=== PATIENT | female | born 2000 | race Hispanic/Latino ===

== ENCOUNTER 2024-10-20 10:13 | Emergency (ER) | payer OTHER, SELFPAY ==
--- OUTSIDE RECORDS SUMMARY | 2024-10-20 10:18 | XMS REPORT | Continuity of Care Document ---
Author Name Unknown Address [address] [facility] [address] [place] [id number] [facility] thconnect Address [address] [facility] [place] [address] Care Team Providers Care Pre Press Manager Name Role Phone PCP, PATIENT DOES NOT HAVE A Primary Care Physic bertram Unavailable HALI GARCIA Attending Clinician Unavailable HALI GARCIA Attending Clinician Unavailable Fontanilla III, MANAGER IMAGE, R Attending Clinician [phone] Radha Burger MD Attending Clinician + 2, [facility] Attending Clinician Unavailable Doctor Unassigned, [place] Attending Clinician U navailable MANAS TAYLOR Attending Clinician Unav ailleticia Ultrasound, Ang-Mfm Attending Clinician Unavaila jose Domingo MD Lorenz Attending Clinician + Nai Bolaños Attending Clinician [phone] Unknown, Attending Attending Clinician Unavailab NAI Mclean Attending Clinician Unavailable HALI GARCIA Admitting Clinician Unavailable Hali Garcia MD Admitting Clinician [phone] Payers Payer Name Policy Type Policy Number Effective Date Expirati on Date Source [facility] [id number] 2023 00:00:00 Problems Condition Name Condition Details Condition Category Status Onset Date Resolution Date Last Treatment Date Treating Clinician Comments Source Encounter for screening for maternal depression Encounter for screening for maternal depression Disease Active 2- 00:00: 00 Aryan lowery [facility] Liveborn infant, of jimenez , born in hospital by delivery Liveborn infant, of jimenez , born in hospital by delivery Disease Active 1-04 00:00: 00 [facility] 39 weeks gestation of 39 weeks gestation of Disease Active 1-03 00:00: 00 [facility] Positive GBS test Positive GBS test Disease Active 2022-09 2-20 00:00: 00 [facility] Encounter for supervisio n of normal first in third trimester Encounter for supervisio n of normal first in third trimester Disease Active 6- 00:00: 00 [facility] Allergies, Adverse Reactions, Alerts Allergy Name Allergy Type Status Severity Reaction(s) Onset Date Inactive Date Treating Clinician Comments Source NO KNOWN ALLERGIE S Drug Class Active [facility] Social History Social Habit Start Date Stop Date Quantity Comments Source ASSERTION 2022-12-22 00:00:00 [facility] Gender identity [facility] Sexual orientation [facility] Alcohol intake 2023-10-13 00:00:00 2023-10-13 00:00:00 Ex-drinker (finding) [facility] History of Social function 2023-03-22 00:00:00 2023-03-22 00:00:00 [facility] Tobacco use and exposure 2023-03-01 00:00:00 2023-03-01 00:00:00 Smokeless tobacco non-user [facility] Alcohol Comment 2023-03-01 00:00:00 2023-03-01 00:00:00 quit when got [facility] Sex Assigned At 2002 00:00:00 2000 00:00:00 [facility] Smoking Status Start Date Stop Date Source Tobacco smoking consumption unknown [facility] Never smoked tobacco [facility] Medications Ordered Medication Name Filled Medication Name Start Date Stop Date Current Medication? Ordering Clinician Indication Dosage Frequency Signature (SIG) Comments Components Source HYDROcodone -acetaminop hen (NORCO 5) 5-325 mg tablet 1 tablet 09-11 00:00: 00 Yes 1{tbl} 1 tablet, Oral, Q6HPRN, Starting on Wed09/10/23 at 1800, Until Discontinu ed, Routine, Pain (scale 7-10), Alternate with Ibuprofen [facility] PNV no.95/wilbur us fum/folic ac ( ORAL) 09-10 08:53: 05 09-10 00:00 :00 No Take by mouth. [facility] ketorolac (TORADOL) injection 30 mg 09-10 06:00: 00 09-11 05:59 :00 No 30mg 30 mg, Slow IV Push, Q6H ABX, 4 doses, First dose on Wed09/10/23 at 0000, Last dose on Wed09/10/23 at 1800, Routine [facility] acetaminoph en 325 mg tablet 09-10 00:00: 00 Yes [id number] 650mg Take 2 tablets by mouth every 6 (six) hours as needed for Pain (scale 1-3) or Pain (scale 4-6). [facility] ferrous sulfate 325 mg (65 mg iron) tablet 09-10 00:00: 00 Yes [id number] 325mg Take 1 tablet by mouth in the morning and 1 tablet in the evening. [facility] vitamin w/FA tablet 09-10 00:00: 00 Yes [id number] 1{tbl} Take 1 tablet by mouth in the morning. [facility] docusate 100 mg capsule 09-10 00:00: 00 Yes [id number] 200mg Take 2 capsules by mouth once daily as needed for Constipati on. [facility] ibuprofen 600 mg tablet 09-10 00:00: 00 Yes [id number] 600mg Take 1 tablet by mouth every 6 (six) hours as needed (Pain). Take with food or milk. [facility] HYDROcodone -acetaminop hen 5-325 mg tablet 09-10 00:00: 00 09-18 05:59 :00 No [id number] 1{tbl} Take 1 tablet by mouth every 6 (six) hours as needed for Pain (scale 7-10) (Alternate with Ibuprofen) for up to 7 days. Indication s: acute pain [facility] gabapentin 300 mg capsule 09-10 00:00: 00 09-16 05:59 :00 No [id number] 300mg Take 1 capsule by mouth in the morning and 1 capsule at noon and 1 capsule in the evening. Do all this for 5 days. [facility] clindamycin in 5 % dextrose (CLEOCIN) 900 mg/50 mL IV piggyback RTU 900 mg 09-09 19:00: 00 09-10 11:51 :00 No 900mg 900 mg, IV Piggyback, Q8H ABX, 3 doses, First dose on Wed09/09/23 at 1300, Last dose on Wed09/10/23 at 0500, Administer over 30 Minutes, 50 mL
Reas on for Anti-Infec tive: Empiric Therapy for Suspected Infection< br>Empiric Therapy Site: Other
O ther site: chorioamni onitis
Duration of therapy: 72 hours
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
membership assistant approving Restricted medication : HALI GARCIA [facility] mupirocin (BACTROBAN OINT) 2 % skin ointment 09-09 14:00: 00 Yes [facility] gabapentin (NEURONTIN) capsule 300 mg 09-09 14:00: 00 Yes 300mg 300 mg, Oral, TID, First dose on Wed09/09/23 at 0800, Until Discontinu ed, Routine [facility] sodium chloride 0.9 % irrigation solution 09-09 12:42: 00 Yes PRN, Starting on Wed09/09/23 at 0642, Until Discontinu ed, Intra-op [facility] lactated ringers IV infusion 1,000 mL 09-09 12:30: 00 09-09 17:06 :00 No 1000mL at 125 mL/hr, 1,000 mL, IV Infusion, ONCE, 1 dose, On Fatou 09/09/23 at 0630, Routine [facility] rho(D) immune globulin (RHOGAM) syringe 300 mcg 09-09 12:25: 09 Yes 300ug 300 mcg, Intramuscu lar, ONCE, For 1 dose, Conditiona l, Routine [facility] diphenhydrA MINE (BENADRYL) injection 25 mg 09-09 12:25: 02 Yes 25mg 25 mg, Slow IV Push, Q6HPRN, Starting on Wed09/09/23 at 0625, Until Discontinu ed, Routine, Itching [facility] diphenhydrA MINE (BENADRYL) tablet 25 mg 09-09 12:25: 02 Yes 25mg 25 mg, Oral, Q6HPRN, Starting on Wed09/09/23 at 0625, Until Discontinu ed, Routine, Sleep, Itching [facility] ondansetron (ZOFRAN (PF)) injection 4 mg 09-09 12:25: 02 Yes 4mg 4 mg, Slow IV Push, Q8HPRN, Starting on Wed09/09/23 at 0625, Until Discontinu ed, Routine, Nausea and Vomiting (N/V) [facility] bisacodyL (DULCOLAX) suppository 10 mg 09-09 12:25: 02 Yes 10mg 10 mg, Rectal, QDAILYPRN, Starting on Wed09/09/23 at 0625, Until Discontinu ed, Routine, Constipati on [facility] simethicone (GAS RELIEF (SIMETHICON E)) chewable tablet 160 mg 09-09 12:25: 02 Yes 160mg 160 mg, Oral, PC+HSPRN, Starting on Wed09/09/23 at 0625, Until Discontinu ed, Routine, Gas [facility] docusate (COLACE) capsule 200 mg 09-09 12:25: 02 Yes 200mg 200 mg, Oral, QDAILYPRN, Starting on Wed09/09/23 at 0625, Until Discontinu ed, Routine, Constipati on [facility] magnesium hydroxide (MILK OF MAGNESIA) 400 mg/5 mL suspension 30 mL 09-09 12:25: 02 Yes 30mL 30 mL, Oral, QDAILYPRN, Starting on Wed09/09/23 at 0625, Until Discontinu ed, Routine, Constipati on [facility] lactated ringers IV infusion 1,000 mL 09-09 12:25: 02 Yes 1000mL at 125 mL/hr, 1,000 mL, IV Infusion, PRN, 1 dose, Starting on Fatou 09/09/23 at 0625, Until Discontinu ed, Routine [facility] ondansetron (ZOFRAN (PF)) injection 09-09 11:48: 00 09-09 12:09 :10 No Slow IV Push, ONCE INTRA PROCEDURE, Starting on Fatou 09/09/23 at 0548, Until Discontinu ed, Routine, Intra-op [facility] azithromyci n (ZITHROMAX) 500 mg in NaCl 0.9% (NS) 250 mL IV piggyback 09-09 11:41: 00 09-09 12:09 :10 No IV Piggyback, CONTINUOUS PRN, Starting on Fatou 09/09/23 at 0541, Until Discontinu ed, Administer over 60 Minutes, 250 mL, Intra-op [facility] gentamicin 250 mg in NaCl 0.9% (NS) 100 mL IV infusion 09-09 11:30: 00 Yes 250mg 250 mg, IV Infusion, Q24H ABX, First dose on Fatou 09/09/23 at 0530, Until Discontinu ed, Administer over 60 Minutes, 100 mL
Reas on for Anti-Infec tive: Empiric Therapy for Suspected Infection< br>Empiric Therapy Site: Other
O ther site: chorioamni onitis
Duration of therapy: Once (ED) [facility] morpHINE PF (DURAMORPH- PF) injection 09-09 11:26: 00 09-09 12:09 :10 No Epidural, ONCE INTRA PROCEDURE, Starting on Fatou 09/09/23 at 0526, Until Discontinu ed, Routine, Intra-op [facility] oxytocin (PITOCIN) 30 units in NS 500 mL IV infusion 09-09 11:19: 00 09-09 12:09 :10 No IV Infusion, CONTINUOUS PRN, Starting on Fatou 09/09/23 at 0519, Until Discontinu ed, Routine, Intra-op [facility] clindamycin in 5 % dextrose (CLEOCIN) 900 mg/50 mL IV piggyback RTU 900 mg 09-09 11:15: 00 09-09 11:00 :00 No 900mg 900 mg, IV Piggyback, ONCE, 1 dose, On Wed09/09/23 at 0515, Administer over 30 Minutes, 50 mL
Reas on for Anti-Infec tive: Surgical Prophylaxi s
Surgi isaias Prophylaxi s: SEWING MACHINE OPERATOR
Duration of therapy: within 24 hours of surgery
Restricte d use approved by: SEWING MACHINE OPERATOR [employer]AC[employer]
membership assistant approving Restricted medication : HALI GARCIA [facility] lactated ringers IV infusion 09-09 10:57: 00 09-09 12:09 :10 No IV Infusion, CONTINUOUS PRN, Starting on Wed09/09/23 at 0457, Until Discontinu ed, Routine, Intra-op [facility] FENTanyl PF (SUBLIMAZE (PF)) injection 09-09 10:56: 00 09-09 12:09 :10 No Epidural, ONCE INTRA PROCEDURE, Starting on Wed09/09/23 at 0456, Until Discontinu ed, Routine, Intra-op [facility] lidocaine-e pinephrine (XYLOCAINE W/EPINEPHRI NE) 2 %-1:200,000 injection 09-09 10:40: 00 09-09 12:09 :10 No Intravenou s, ONCE INTRA PROCEDURE, Starting on Wed09/09/23 at 0440, Until Discontinu ed, Routine, Intra-op [facility] diphenhydrA MINE (BENADRYL) injection 25 mg 09-09 05:18: 00 09-09 05:26 :00 No 25mg 25 mg, Intravenou s, ONCE, 1 dose, On Wed09/08/23 at 2330, Routine [facility] PNV no.95/wilbur us fum/folic ac ( ORAL) 09-09 05:08: 56 Yes Take by mouth. [facility] fentaNYL-ro pivacaine 2 mcg/mL-0.1 % (PF) in NS 200 mL epidural infusion RTU 09-09 03:00: 00 09-09 12:09 :10 No Epidural, ONCE INTRA PROCEDURE, Starting on Wed09/08/23 at 2100, Until Discontinu ed, Routine, Intra-op [facility] lidocaine-e pinephrine (XYLOCAINE W/EPINEPHRI NE) 1.5 %-1:200,000 injection 09-09 02:53: 00 09-09 12:09 :10 No Intraderma l, ONCE INTRA PROCEDURE, Starting on Wed09/08/23 at 2053, Until Discontinu ed, Routine, Intra-op [facility] oxytocin (PITOCIN) 30 units in NS 500 mL IV infusion 09-08 21:15: 00 09-09 12:26 :03 No 2mU/min at 2-40 mL/hr, IV Infusion, TITRATE, Starting on Wed09/08/23 at 1515, Until Fatou 09/09/23 at 0626, ESTHELA [facility] FENTanyl PF (SUBLIMAZE (PF)) injection 100 mcg 09-08 16:30: 37 09-09 12:26 :02 No 100ug 100 mcg, Slow IV Push, Q1HPRN, Starting on Wed09/08/23 at 1030, Until Fatou 09/09/23 at 0626, Routine, contractio n pain without an epidural and SVE < 8 cm and Cat I strip [facility] misoprostol (CYTOTEC) quarter-tab let 25 mcg 09-08 16:30: 00 09-08 17:13 :00 No 25ug 25 mcg, Oral, ONCE, 1 dose, On Wed09/08/23 at 1030, Routine [facility] D5W-LR IV infusion 1,000 mL 09-08 16:28: 21 09-09 12:25 :24 No 1000mL at 1-125 mL/hr, IV Infusion, TITRATE, Starting on Wed09/08/23 at 1028, Until Fatou 09/09/23 at 0625, Routine [facility] sodium citrate-cit cyn acid (BICITRA) 500-334 mg/5 mL solution 30 mL -03 16:28: 21 09-09 10:49 :00 No 30mL 30 mL, Oral, PRE-PROCED URE ONCE, 1 dose, Starting on Wed09/08/23 at 1028, Until Discontinu ed, Routine, Surgery/Pr ocedure [facility] polymyxin B sulf-trimet hoprim 10,000 unit- 1 mg/mL ophthalmic drops 03-22 00:00: 00 03-30 04:59 :00 No [id number] 1[drp] Place 1 Drop in left eye every 6 (six) hours for 7 days. [facility] PNV no.95/wilbur us fum/folic ac ( ORAL) 03-01 14:09: 19 Yes Take by mouth. [facility] Immunizations Ordered Immunization Name Filled Immunization Name Date Status Comments Source Influenza Virus Vaccine Quad IM, Preserv and ABX Free 6 MO-64 YRS (FLUCELVAX) Unknown Completed [facility] TDAP Unknown Completed [facility] Influenza Virus Vaccine Quad IM, Preserv and ABX Free 6 MO-64 YRS (FLUCELVAX) Unknown Completed [facility] TDAP Unknown Completed [facility] Influenza Virus Vaccine Quad IM, Preserv and ABX Free 6 MO-64 YRS (FLUCELVAX) Unknown Completed [facility] TDAP Unknown Completed [facility] Influenza Virus Vaccine Quad IM, Preserv and ABX Free 6 MO-64 YRS (FLUCELVAX) Unknown Completed [facility] TDAP Unknown Completed [facility] Influenza Virus Vaccine Quad IM, Preserv and ABX Free 6 MO-64 YRS (FLUCELVAX) Unknown Completed [facility] TDAP Unknown Completed [facility] Influenza Virus Vaccine Quad IM, Preserv and ABX Free 6 MO-64 YRS (FLUCELVAX) Unknown Completed [facility] TDAP Unknown Completed [facility] Influenza Virus Vaccine Quad IM, Preserv and ABX Free 6 MO-64 YRS (FLUCELVAX) Unknown Completed [facility] TDAP Unknown Completed [facility] Influenza Virus Vaccine Quad IM, Preserv and ABX Free 6 MO-64 YRS (FLUCELVAX) Unknown Completed [facility] TDAP Unknown Completed [facility] Influenza Virus Vaccine Quad IM, Preserv and ABX Free 6 MO-64 YRS (FLUCELVAX) Unknown Completed [facility] TDAP Unknown Completed [facility] Influenza Virus Vaccine Quad IM, Preserv and ABX Free 6 MO-64 YRS (FLUCELVAX) Unknown Completed [facility] TDAP Unknown Completed [facility] Influenza Virus Vaccine Quad IM, Preserv and ABX Free 6 MO-64 YRS (FLUCELVAX) Unknown Completed [facility] TDAP Unknown Completed [facility] Influenza Virus Vaccine Quad IM, Preserv and ABX Free 6 MO-64 YRS (FLUCELVAX) Unknown Completed [facility] TDAP Unknown Completed [facility] Influenza Virus Vaccine Quad IM, Preserv and ABX Free 6 MO-64 YRS (FLUCELVAX) Unknown Completed [facility] TDAP Unknown Completed [facility] Influenza Virus Vaccine Quad IM, Preserv and ABX Free 6 MO-64 YRS (FLUCELVAX) Unknown Completed [facility] TDAP Unknown Completed [facility] Influenza Virus Vaccine Quad IM, Preserv and ABX Free 6 MO-64 YRS (FLUCELVAX) Unknown Completed [facility] TDAP Unknown Completed [facility] Influenza Virus Vaccine Quad IM, Preserv and ABX Free 6 MO-64 YRS (FLUCELVAX) Unknown Completed [facility] TDAP Unknown Completed [facility] Vital Signs Vital Name Observation Time Observation Value Comments S ource Systolic blood pressure 2023-10-13 19:05:00 120 mm[Hg] [facility] Diastolic blood pressure 2023-10-13 19:05:00 78 mm[Hg] [facility] Heart rate 2023-10-13 19:05:00 69 /min [facility] Body temperature 2023-10-13 19:05:00 36.44 Nandini [facility] Respiratory rate 2023-10-13 19:05:00 18 /min [facility] Body height 2023-10-13 19:05:00 160 cm [facility] Body weight 2023-10-13 19:05:00 66.225 kg [facility] BMI 2023-10-13 19:05:00 25.86 kg/m2 [facility] Systolic blood pressure 2023-09-16 21:00:00 121 mm[Hg] [facility] Diastolic blood pressure 2023-09-16 21:00:00 77 mm[Hg] [facility] Heart rate 2023-09-16 21:00:00 84 /min Unive [facility] Body temperature 2023-09-16 21:00:00 36.61 Nandini [facility] Respiratory rate 2023-09-16 21:00:00 17 /min [facility] Body height 2023-09-16 21:00:00 160 cm [facility] Body weight 2023-09-16 21:00:00 71.033 kg [facility] BMI 2023-09-16 21:00:00 27.74 kg/m2 [facility] Body temperature 2023-09-10 18:08:00 36.61 Nandini [facility] Systolic blood pressure 2023-09-10 13:32:00 105 mm[Hg] [facility] Diastolic blood pressure 2023-09-10 13:32:00 59 mm[Hg] [facility] Heart rate 2023-09-10 13:32:00 92 /min [facility] Respiratory rate 2023-09-10 13:32:00 18 /min [facility] Oxygen saturation in Arterial blood by Pulse oximetry 2023-09-10 13:32:00 97 /min [facility] Body height 2023-09-08 16:50:00 157.5 cm [facility] Body weight 2023-09-08 16:50:00 78.019 kg [facility] BMI 2023-09-08 16:50:00 31.46 kg/m2 [facility] Respiratory rate 2023-09-09 12:03:00 26 /min [facility] Systolic blood pressure 2023-09-10 01:01:00 112 mm[Hg] [facility] Diastolic blood pressure 2023-09-10 01:01:00 64 mm[Hg] [facility] Heart rate 2023-09-10 01:01:00 112 /min Unive [facility] Oxygen saturation in Arterial blood by Pulse oximetry 2023-09-10 01:01:00 97 /min [facility] Body temperature 2023-09-10 01:00:00 36.67 Nandini [facility] Respiratory rate 2023-09-10 01:00:00 17 /min [facility] Body height 2023-09-08 16:50:00 157.5 cm [facility] Body weight 2023-09-08 16:50:00 78.019 kg [facility] BMI 2023-09-08 16:50:00 31.46 kg/m2 [facility] Systolic blood pressure 2023-09-02 17:00:00 119 mm[Hg] [facility] Diastolic blood pressure 2023-09-02 17:00:00 80 mm[Hg] [facility] Heart rate 2023-09-02 17:00:00 92 /min Unive [facility] Body temperature 2023-09-02 17:00:00 36.28 Nandini [facility] Body height 2023-09-02 17:00:00 162.6 cm [facility] Body weight 2023-09-02 17:00:00 77.474 kg [facility] BMI 2023-09-02 17:00:00 29.32 kg/m2 [facility] Systolic blood pressure 2023-08-25 19:14:00 131 mm[Hg] [facility] Diastolic blood pressure 2023-08-25 19:14:00 80 mm[Hg] [facility] Heart rate 2023-08-25 19:14:00 105 /min Unive [facility] Body temperature 2023-08-25 19:14:00 36.94 Nandini [facility] Respiratory rate 2023-08-25 19:14:00 18 /min [facility] Body height 2023-08-25 19:14:00 162.6 cm [facility] Body weight 2023-08-25 19:14:00 77.111 kg [facility] BMI 2023-08-25 19:14:00 29.18 kg/m2 [facility] Systolic blood pressure 2023-08-18 22:50:00 127 mm[Hg] [place] [facility] Diastolic blood pressure 2023-08-18 22:50:00 78 mm[Hg] [facility] Heart rate 2023-08-18 22:50:00 105 [facility] Body temperature 2023-08-18 22:50:00 36.61 Nandini [facility] Respiratory rate 2023-08-18 22:50:00 17 /min [facility] Body height 2023-08-18 22:50:00 162.6 cm [facility] Body weight 2023-08-18 22:50:00 75.569 kg [facility] BMI 2023-08-18 22:50:00 28.60 kg/m2 [facility] Systolic blood pressure 2023-07-28 21:45:00 128 mm[Hg] [facility] Diastolic blood pressure 2023-07-28 21:45:00 75 mm[Hg] [facility] Heart rate 2023-07-28 21:45:00 116 /min [facility] Body temperature 2023-07-28 21:45:00 36 Nandini [facility] Respiratory rate 2023-07-28 21:45:00 17 /min [facility] Body height 2023-07-28 21:45:00 162.6 cm [facility] Body weight 2023-07-28 21:45:00 71.668 kg [facility] BMI 2023-07-28 21:45:00 27.12 kg/m2 [facility] Systolic blood pressure 2023-07-13 22:04:00 115 mm[Hg] [facility] Diastolic blood pressure 2023-07-13 22:04:00 72 mm[Hg] [facility] Heart rate 2023-07-13 22:04:00 94 /min Unive [facility] Body temperature 2023-07-13 22:04:00 36.78 Nandini [facility] Respiratory rate 2023-07-13 22:04:00 18 /min [facility] Body height 2023-07-13 22:04:00 152.4 cm [facility] Body weight 2023-07-13 22:04:00 71.668 kg [facility] BMI 2023-07-13 22:04:00 30.86 kg/m2 [facility] Systolic blood pressure 2023-06-29 20:41:00 117 mm[Hg] [facility] Diastolic blood pressure 2023-06-29 20:41:00 72 mm[Hg] [facility] Heart rate 2023-06-29 20:41:00 90 /min Unive [facility] Body temperature 2023-06-29 20:41:00 36.39 Nandini [facility] Respiratory rate 2023-06-29 20:41:00 17 /min [facility] Body height 2023-06-29 20:41:00 152.4 cm [facility] Body weight 2023-06-29 20:41:00 68.765 kg [facility] BMI 2023-06-29 20:41:00 29.61 kg/m2 [facility] Systolic blood pressure 2023-05-31 21:35:00 117 mm[Hg] [facility] Diastolic blood pressure 2023-05-31 21:35:00 76 mm[Hg] [facility] Heart rate 2023-05-31 21:35:00 99 /min Unive [facility] Body temperature 2023-05-31 21:35:00 36.56 Nandini [facility] Body height 2023-05-31 21:35:00 152.4 cm [facility] Body weight 2023-05-31 21:35:00 62.596 kg [facility] BMI 2023-05-31 21:35:00 26.95 kg/m2 [facility] [facility] Systolic blood pressure 2023-05-03 20:24:00 103 mm[Hg] [facility] Diastolic blood pressure 2023-05-03 20:24:00 65 mm[Hg] [facility] Heart rate 2023-05-03 20:24:00 79 /min Unive [facility] Respiratory rate 2023-05-03 20:24:00 18 /min [facility] Body height 2023-05-03 20:24:00 152.4 cm [facility] weight 2023-05-03 20:24:00 59.603 kg [facility] BMI 2023-05-03 20:24:00 25.66 kg/m2 [facility] Oxygen saturation in Arterial blood by Pulse oximetry 2023-05-03 20:24:00 99 /min [facility] Body temperature 2023-04-05 21:21:00 36.83 Nandini [facility] Respiratory rate 2023-04-05 21:21:00 20 /min [facility] Body height 2023-04-05 21:21:00 152.4 cm [facility] Body weight 2023-04-05 21:21:00 57.425 kg Univ [facility] BMI 2023-04-05 21:21:00 24.72 kg/m2 [facility] Oxygen saturation in Arterial blood by Pulse oximetry 2023-04-05 21:21:00 98 /min [facility] Systolic blood pressure 2023-04-05 21:21:00 110 mm[Hg] [facility] Diastolic blood pressure 2023-04-05 21:21:00 70 mm[Hg] [facility] Heart rate 2023-04-05 21:21:00 103 /min Unive [facility] Systolic blood pressure 2023-03-22 15:40:00 108 mm[Hg] [facility] Diastolic blood pressure 2023-03-22 15:40:00 67 mm[Hg] [facility] Heart rate 2023-03-22 15:40:00 102 /min [facility] Body temperature 2023-03-22 15:40:00 36.56 Nandini [facility] Respiratory rate 2023-03-22 15:40:00 20 /min [facility] Body height 2023-03-22 15:40:00 157.5 cm [facility] Body weight 2023-03-22 15:40:00 54.006 kg [facility] BMI 2023-03-22 15:40:00 21.78 kg/m2 [facility] Oxygen saturation in Arterial blood by Pulse oximetry 2023-03-22 15:40:00 98 /min [facility] Systolic blood pressure 2023-03-01 19:07:00 106 mm[Hg] [facility] Diastolic blood pressure 2023-03-01 19:07:00 72 mm[Hg] [facility] Heart rate 2023-03-01 19:07:00 71 /min Unive [facility] Body temperature 2023-03-01 19:07:00 37.17 Nandini [facility] Body height 2023-03-01 19:07:00 157.5 cm [facility] Body weight 2023-03-01 19:07:00 53.162 kg [facility] BMI 2023-03-01 19:07:00 21.44 kg/m2 [facility] Procedures Procedure Date / Time Performed Performing Clinicia n Source CBC WITH DIFF 2023-09-10 10:00:00 Hali Garcia [facility] CBC WITH DIFF 2023-09-10 10:00:00 Hali Garcia [facility] CENTRAL NEURAXIAL BLOCK 2023-09-09 02:48:00 Radha Burger [facility] CBC WITH DIFF 2023-09-08 17:00:00 Hali Garcia [facility] HEPATITIS B SURFACE ANTIGEN 2023-09-08 17:00:00 Hali Garcia [facility] HB ABO GROUPING 2023-09-08 17:00:00 Garcia, Hali [facility] RHO (D) IMMUNE GLOBULIN 2023-09-08 [facility] - [facility]PR 2023-09-08 17:00[facility]/2 [facility]-AB WITH REFLEX 2023-09-08 17:00[facility] 2023-09-08 17:00[facility]00 [facility]TIGEN 2023-09-08 17:00:00 Phu [facility] HB ABO GROUPING 2023-09-08 17:00:00 Phu [facility] RHO (D) IMMUNE GLOBULIN 2023-09-08 17:00[facility] - RPR 2023-09-08 17:00[facility]/2 [facility]-AB WITH REFLEX 2023-09-08 17:00:00 Phu [facility] CONSENT/REFUSAL FOR DIAGNOSIS AND TREATMENT 2023-09-08 16:18:11 Doctor Unassigned, [place] [facility] CONSENT/REFUSAL FOR DIAGNOSIS AND TREATMENT 2023-09-08 16:18:11 Doctor Unassigned, [place] [facility] ASSIGNMENT OF BENEFITS 2023-09-08 16:17:50 Docto r Unassigned, [place] [facility] ASSIGNMENT OF BENEFITS 2023-09-08 16:17:50 Docto r Unassigned, [place] [facility] POCT URINALYSIS W/O SPECIFIC GRAVITY 2023-09-02 00:00:[facility] 2023-08-25 19:11:00 Phu [facility] POCT URINALYSIS W/O SPECIFIC GRAVITY 2023-08-25 00:00:[facility] >14 WEEKS US LIMITED 2023-08-18 23:10:02 Phu [facility] DSU PRE-OP 2023-08-18 06:01:00 Doctor Unass igned, [place] [facility] POCT URINALYSIS W/O SPECIFIC GRAVITY 2023-08-18 00:00:00 GarciaHali [facility] POCT URINALYSIS W/O SPECIFIC GRAVITY 2023-07-28 00:00:00 PhuHali [facility] POCT URINALYSIS W/O SPECIFIC GRAVITY 2023-07-13 00:00:00 PhuHali [facility] TDAP VACCINE, >11 YRS, IM 2023-06-29 20:42:39 Phu [facility] FLU VACC (), 6 MO-64 YRS, .5ML, IM, QUAD (FLUCELVAX) 2023-06-29 20:42:39 PhuHali [facility] POCT URINALYSIS W/O SPECIFIC GRAVITY 2023-06-29 00:00[facility] PO[facility]INALYSIS W/O SPECIFIC GRAVITY 2023-05-31 00:00:[facility] SECOND [facility] THIRD TRIMESTER ULTRASOUND 2023-05-12 18:27:00 [facility] POCT URINALYSIS W/O SPECIFIC GRAVITY 2023-05-03 00:00:[facility] POCT URINALYSIS W/O SPECIFIC GRAVITY 2023-04-05 00:00:[facility] POCT MOLECULAR STREP 2023-03-22 15:45:00 Unknown, Atte nding [facility] <14 WEEKS US LIMITED 2023-03-01 22:08:46 PhuHali [facility] ASSIGNMENT OF BENEFITS 2023-03-01 18:54:09 Docto r Unassigned, [place] [facility] POCT TEST 2023-03-01 00:00:[facility] POCT URINALYSIS W/O SPECIFIC GRAVITY 2023-03-01 00:00:00 [facility] SE[facility] SECTION Garcia, [facility] Encounters Start Date/Time End Date/Time Encounter Type Admission Type Attending [facility] Care Department Encounter ID Source 2024-03-29 09:30:00 2024-03-29 09:30:00 Outpatient R HALI GARCIA VIEN [facility] [id number] [facility] 2023-11-25 10:45:00 2023-11-25 10:45:00 Outpatient R HALI GARCIA [facility] [id number] [facility] 2023-10-13 13:00:00 2023-10-13 13:17:32 Outpatient R HALI GARCIA [facility] [id number] [facility] 2023-10-13 13:00:00 2023-10-13 13:17:32 Routine Visit Hali Garcia [facility] 1.2.840.114 350.1.13.10 4.2.7.2.686 [id number] [facility] 2023-09-16 15:00:00 2023-09-16 15:09:20 Outpatient R HALI GARCIA [facility] [id number] [facility] 2023-09-16 15:00:00 2023-09-16 15:09:20 Routine Visit Hali Garcia [facility] 1.2.840.114 350.1.13.10 4.2.7.2.686 [id number] [facility] 2023-09-08 10:19:00 2023-09-10 21:05:00 Inpatient P HALI GARCIA [facility] [id number] [facility] 2023-09-08 10:19:00 2023-09-10 21:05:00 Hospital Encounter Hali Gacria [facility] 1.2.840.114 350.1.13.10 4.2.7.2.686 [id number] [facility] 2023-09-09 20:02:02 2023-09-09 20:02:02 Anesthesia Event Maricarmen Madera [facility] 1.2.840.114 350.1.13.10 4.2.7.2.686 [id number] [facility] 2023-09-09 20:02:02 2023-09-09 20:02:02 Anesthesia Event Maricarmen Madera [facility] 1.2.840.114 350.1.13.10 4.2.7.2.686 [id number] [facility] 2023-09-08 20:48:00 2023-09-09 06:09:00 Anesthesia Event Radha Burger [facility] 1.2.840.114 350.1.13.10 4.2.7.2.686 [id number] [facility] 2023-09-09 00:00:00 2023-09-09 00:00:00 Surgery Hali Garcia [facility] 1.2.840.114 350.1.13.10 4.2.7.2.686 [id number] [facility] 2023-09-02 11:15:00 2023-09-02 11:15:21 Outpatient R HALI GARCIA [facility] [id number] [facility] 2023-09-02 11:15:00 2023-09-02 11:15:21 Routine Visit Hali Garcia [facility] 1.2.840.114 350.1.13.10 4.2.7.2.686 [id number] 134 [id number] [facility] 2023-08-25 13:00:00 2023-08-25 13:50:41 Temporary Office Assistant Visit 2, Adc Lab Hali Garcia [facility] 1.2.840.114 350.1.13.10 4.2.7.2.686 [id number] [facility] 2023-08-25 13:45:00 2023-08-25 13:45:00 [facility] 1.2.840.114 350.1.13.10 4.2.7.2.686 [id number] [facility] 2023-08-25 13:45:00 2023-08-25 13:39:50 Outpatient R HALI GARCIA [facility] [id number] [facility] 2023-08-18 16:00:00 2023-08-18 16:35:44 Outpatient R HALI GARCIA [facility] [id number] [facility] 2023-08-18 16:00:00 2023-08-18 16:35:44 Routine Visit Hali Garcia [facility] 1.2.840.114 350.1.13.10 4.2.7.2.686 [id number] [facility] 2023-08-18 00:00:00 2023-08-18 00:00:00 Orders Only Doctor Unassigned, [place] [facility] 1..84.114 350.1.13.10 4.2.7.2.686 [id number] [facility] 2023-08-12 16:00:00 2023-08-12 16:00:00 Outpatient R HALI GARCIA [facility] [id number] [facility] 2023-07-28 15:45:00 2023-07-28 16:06:10 Outpatient R HALI GARCIA [facility] [id number] [facility] 2023-07-28 15:45:00 2023-07-28 16:06:10 Routine Visit Hali Garcia [facility] 1.2.840.114 350.1.13.10 4.2.7.2.686 [id number] [facility] 2023-07-28 00:00:00 2023-07-28 00:00:00 Telephone [facility] 1.2.840.114 350.1.13.10 4.2.7.2.686 [id number] [facility] 2023-07-13 16:15:00 2023-07-13 16:25:32 Outpatient R HALI GARCIA [facility] [id number] [facility] 2023-07-13 16:15:00 2023-07-13 16:25:32 Routine Visit Hali Garcia [facility] 1.2.840.114 350.1.13.10 4.2.7.2.686 [id number] [facility] 2023-06-29 15:30:00 2023-06-29 15:54:51 Outpatient R HALI GARCIA [facility] [id number] [facility] 2023-06-29 15:30:00 2023-06-29 15:54:51 Routine Visit Hali Garcia [facility] 1.2.840.114 350.1.13.10 4.2.7.2.686 [id number] [facility] 2023-06-14 13:00:00 2023-06-14 14:14:57 Outpatient R HALI GARCIA [facility] [id number] [facility] 2023-06-14 13:00:00 2023-06-14 13:15:00 Temporary Office Assistant Visit 2, Adc Lab Hali Garcia [facility] 1.2.840.114 350.1.13.10 4.2.7.2.686 [id number] [facility] 2023-05-31 16:15:00 2023-05-31 16:43:52 Outpatient R HALI GARCIA [facility] [id number] [facility] 2023-05-31 16:15:00 2023-05-31 16:43:52 Routine Visit Hali Garcia [facility] 1.2.840.114 350.1.13.10 4.2.7.2.686 [id number] [facility] 2023-05-31 00:00:00 2023-05-31 00:00:00 Letter (Out) Hali Garcia [facility] 1.2840.114 350.1.13.10 4.2.7.2.686 [id number] [facility] 2023-05-12 13:00:00 2023-05-12 13:52:28 Outpatient P MANAS MAYO [facility] [id number] [facility] 2023-05-12 13:00:00 2023-05-12 13:52:28 Temporary Office Assistant Visit Ultrasound, Ang-Mfm Ariella wolff [facility] SEWING MACHINE OPERATOR [facility] 1.2840.114 350.1.13.10 4.2.7.2.686 [id number] [facility] 2023-05-12 00:00:00 2023-05-12 00:00:00 Letter (Out) Manas Mayo [facility] SEWING MACHINE OPERATOR [facility] 1.2.840.114 350.1.13.10 4.2.7.2.686 [id number] [facility] 2023-05-03 15:45:00 2023-05-03 15:45:00 Routine Visit Hali Garcia [facility] 1.2.840.114 350.1.13.10 4.2.7.2.686 [id number] [facility] 2023-05-03 15:45:00 2023-05-03 15:40:16 Outpatient R HALI GARCIA [facility] [id number] [facility] 2023-04-19 14:50:00 2023-04-19 14:50:00 Outpatient [facility] [id number] Alonzo Sanchez 2023-04-19 09:15:00 2023-04-19 09:34:08 Outpatient R HALI GARCIA [facility] [id number] [facility] 2023-04-19 09:15:00 2023-04-19 09:34:08 Temporary Office Assistant Visit 2, Adc Lab Hali Garcia [facility] 1..840.114 350.1.13.10 4.2.7.2.686 [id number] [facility] 2023-04-13 11:36:05 2023-04-13 11:36:05 Outpatient [facility] [id number] Alonzo Sanchez 2023-04-05 16:15:00 2023-04-05 16:36:43 Outpatient R HALI GARCIA [facility] [id number] [facility] 2023-04-05 16:15:00 2023-04-05 16:36:43 Routine Visit Hali Garcia [facility] 1..840.114 350.1.13.10 4.2.7.2.686 [id number] [facility] 2023-03-22 10:20:00 2023-03-22 10:40:00 Urgent Care Nai Toth Unknown, Attending [facility] 1..840.114 350.1.13.10 4.2.7.2.686 [id number] [facility] 2023-03-22 10:20:00 2023-03-22 10:20:00 Outpatient R DIAMONDNAI [facility] [id number] [facility] 2023-03-16 00:00:00 2023-03-16 00:00:00 Telephone Hali Garcia [facility] 1.2.840.114 350.1.13.10 4.2.7.2.686 [id number] [facility] 2023-03-15 00:00:00 2023-03-15 00:00:00 Telephone Hali Garcia [facility] 1.2.840.114 350.1.13.10 4.2.7.2.686 [id number] [facility] 2023-03-08 00:00:00 2023-03-08 00:00:00 Telephone Hali Garcia [facility] 1.2.840.114 350.1.13.10 4.2.7.2.686 [id number] [facility] 2023-03-02 10:30:00 2023-03-02 10:45:00 Temporary Office Assistant Visit 2, Adc Lab Hali Garcia [facility] 1.2.840.114 350.1.13.10 4.2.7.2.686 [id number] [facility] 2023-03-02 10:30:00 2023-03-02 10:30:00 Outpatient R HALI GARCIA [facility] [id number] [facility] 2023-03-01 14:00:00 2023-03-01 14:47:19 Initial Visit Hali Garcia [facility] 1.2.840.114 350.1.13.10 4.2.7.2.686 [id number] [facility] 2023-03-01 14:00:00 2023-03-01 14:47:19 Outpatient R HALI GARCIA [facility] [id number] [facility] 2023-03-01 00:00:00 2023-03-01 00:00:00 Orders Only Doctor Unassigned, [place] [facility] 1.2.840.114 350.1.13.10 4.2.7.2.686 [id number] [facility] Results Test Description Test Time Test Comments Results Result Co mments Source [facility] IMMUNE [id number] 14:40:08* Test Item Value Reference Range Interpretation Comme nts RHIG CANDIDATE? (test code = 5188) No- see comment Patient is not a candidate for RhIg- Patient is Rh Positive.Performed at [facility] Laboratory Services - ADC Blood [address] [place] [id number] Free: [phone] No. [id number] [facility] [id number] 02:48:00 Radha Burger MD ? ? 09/08/2023 ?9:11 PM Central Neuraxial Block Date/Time: 09/08/2023 8:48PM Performed by: Radha Burger MDAuthorized by: Radha Burger MD ?Patient Location: OBEnd Time: 09/08/2023 8:58 PMReason for Block: OB request, Patient request and Labor analgesiaStaff: ?Anesthesiologist: Radha Burger MD ?Performed by: anesthesiologistPreanesthetic Checklist: patient identified, IV checked, risks and benefits explained, monitors and equipment checked, timeout performed, ob surgical consent/approval, pre-op evaluation, surgical consent, site marked, anesthesia consent, OB/surgical consent verified, ob/surgical consent verified and ob/surgical consent approvalProcedure: ?Type of Neuraxial: Epidural ?Epidural Description: 1st attempt ? SterilityPrep cap, drape, gloves, hand hygiene and mask ? ?Sedation Level no sedation ?Patient Position: sitting ?Prep: Betadine and patient draped ? ?Monitoring: heart rate, continuous pulse ox, heart rate / toco and NIBP ?Location: lumbar (1-5) ?Lumbar: L3-L4 ?Approach: midline ? ?Technique: FABRICE airand catheter ?Guidance with: landmark technique}Epidural/Spinal [place] and/or Catheter: ?Epidural/Spinal Kit: Earnestun ?Needle Type: Tuohy ?Needle Gauge: 17 G ?Needle Length: 3.5 in (8.89 cm) ?Needle Insertion Depth: 5 ?Catheter Type: multiport ? ?Catheter Size: 19 G ? ?Catheter at Skin Depth: 10 ?Number of Attempts: 1 ?Test Dose: lidocaine 1.5% with epinephrine 1-to-200,000 and negative ? ?Dose: 3 cc ? ?Catheter Securement Method: Tegaderm, surgical tape and clear occlusive dressingAssessment: ?Sensory Level: above T10 ?Block Outcome: successful block, no apparent complications, pain relieved, patient tolerated procedure well, patient satisfied, patient comfortable, positive pain relief, appropriate motor block, appropriate sensory block and pain improved ? ?Procedure Assessment: patient tolerated procedure well with no complicationsNotes: ? Smooth and atraumatic, one attempt, (+) Local, (+) STF, catheter threaded easily, negative aspiration, negative test dose. Secured with mastisol then tegaderm and tape. Reports relief.[facility] Urinalysis w/o Specific [id number] 17:05:00* Test Item Value Reference Range Interpretation Comme nts POCT PH U (test code = 3254) N/A 5-8 POCT U LEUK EST (test code = 3263) N/A Negative - Negative POCT U NIT (test code = 3262) N/A Negative - Negati ve POCT U PROT (test code = 3259) NEGATIVE Negative - Negat cabrera POCT U GLU (test code = 3256) NORMAL Negative - Negati ve POCT U KETONE (test code = 3258) N/A Negative - Neg ative POCT U BLD (test code = 3257) N/A Negative - Negati ve [facility] Urinalysis w/o Specific [id number] 19:30:00* Test Item Value Reference Range Interpretation Comme nts POCT PH U (test code = 3254) n/a 5-8 POCT U LEUK EST (test code = 3263) n/a Negative - N egative POCT U NIT (test code = 3262) n/a Negative - Negati ve POCT U PROT (test code = 3259) neg Negative - Negat cabrera POCT U GLU (test code = 3256) neg Negative - Negati ve POCT U KETONE (test code = 3258) n/a Negative - Neg ative POCT U BLD (test code = 3257) n/a Negative - Negati ve [facility] Urinalysis w/o Specific [id number] 22:04:00* Test Item Value Reference Range Interpretation Comme nts POCT PH U (test code = 3254) n/a 5-8 POCT U LEUK EST (test code = 3263) n/a Negative - Negative POCT U NIT (test code = 3262) n/a Negative - Negati ve POCT U PROT (test code = 3259) negative Negative - Negat cabrera POCT U GLU (test code = 3256) normal Negative - Negati ve POCT U KETONE (test code = 3258) n/a Negative - Neg ative POCT U BLD (test code = 3257) n/a Negative - Negati ve [facility] URINALYSIS W/O SPECIFIC [id number] 22:11:00* Test Item Value Reference Range Interpretation Comme nts POCT PH U (test code = 3254) n//a 5-8 POCT U LEUK EST (test code = 3263) n/a Negative - Negative POCT U NIT (test code = 3262) n/a Negative - Negati ve POCT U PROT (test code = 3259) negative Negative - Negat cabrera POCT U GLU (test code = 3256) normal Negative - Negati ve POCT U KETONE (test code = 3258) n/a Negative - Neg ative POCT U BLD (test code = 3257) n/a Negative - Negati ve [facility] URINALYSIS W/O SPECIFIC [id number] 22:06:00* Test Item Value Reference Range Interpretation Comme nts POCT PH U (test code = 3254) n/a 5-8 POCT U LEUK EST (test code = 3263) n/a Negative - Negative POCT U NIT (test code = 3262) n/a Negative - Negati ve POCT U PROT (test code = 3259) Negative Negative - Negat cabrera POCT U GLU (test code = 3256) Negative Negative - Negati ve POCT U KETONE (test code = 3258) n/a Negative - Neg ative POCT U BLD (test code = 3257) n/a Negative - Negati ve [facility] URINALYSIS W/O SPECIFIC [id number] 20:39:00* Test Item Value Reference Range Interpretation Comme nts POCT PH U (test code = 3254) n/a 5-8 POCT U LEUK EST (test code = 3263) n/a Negative - Negative POCT U NIT (test code = 3262) n/a Negative - Negati ve POCT U PROT (test code = 3259) negative Negative - Negat cabrera POCT U GLU (test code = 3256) normal Negative - Negati ve POCT U KETONE (test code = 3258) n/a Negative - Neg ative POCT U BLD (test code = 3257) n/a Negative - Negati ve [facility] URINALYSIS W/O SPECIFIC [id number] 21:32:00* Test Item Value Reference Range Interpretation Comme nts POCT PH U (test code = 3254) 5 mg/dl 5-8 POCT U LEUK EST (test code = 3263) Negative Negative - Negative POCT U NIT (test code = 3262) Negative Negative - Negati ve POCT U PROT (test code = 3259) Negative Negative - Negat cabrera POCT U GLU (test code = 3256) Normal Negative - Negati ve POCT U KETONE (test code = 3258) Negative Negative - Neg ative POCT U BLD (test code = 3257) Negative Negative - Negati ve [facility] URINALYSIS W/O SPECIFIC [id number] 20:21:00* Test Item Value Reference Range Interpretation Comme nts POCT PH U (test code = 3254) n/a 5-8 POCT U LEUK EST (test code = 3263) n/a Negative - Negative POCT U NIT (test code = 3262) n/a Negative - Negati ve POCT U PROT (test code = 3259) negative Negative - Negat cabrera POCT U GLU (test code = 3256) negative Negative - Negati ve POCT U KETONE (test code = 3258) n/a Negative - Neg ative POCT U BLD (test code = 3257) n/a Negative - Negati ve [facility] URINALYSIS W/O SPECIFIC [id number] 21:20:00* Test Item Value Reference Range Interpretation Comme nts POCT PH U (test code = 3254) n/a 5-8 POCT U LEUK EST (test code = 3263) n/a Negative - Negative POCT U NIT (test code = 3262) n/a Negative - Negati ve POCT U PROT (test code = 3259) negative Negative - Negat cabrera POCT U GLU (test code = 3256) negative Negative - Negati ve POCT U KETONE (test code = 3258) n/a Negative - Neg ative POCT U BLD (test code = 3257) n/a Negative - Negati ve [facility] MOLECULAR [id number] 15:53:19* Test Item Value Reference Range Interpretation Comme nts POCT Molecular Strep (test c ode = 56894-8) Negative Negative Lab Interpretation (test cod e = 24182-9) Normal [facility] [id number] 19:09:00* Test Item Value Reference Range Interpretation Comme nts POCT PREG (test code = 1605) Positive On board controls acceptable with C Line (test code = 3574) Yes POCT PREG LOT # (test code = 3575) POCT PREG TEST DATE ( test code = 3576) [facility] URINALYSIS W/O SPECIFIC [id number] 19:06:00* Test Item Value Reference Range Interpretation Comme nts POCT PH U (test code = 3254) n/a 5-8 POCT U LEUK EST (test code = 3263) n/a Negative - Negative POCT U NIT (test code = 3262) n/a Negative - Negati ve POCT U PROT (test code = 3259) Negative Negative - Negat cabrera POCT U GLU (test code = 3256) Normal Negative - Negati ve POCT U KETONE (test code = 3258) n/a Negative - Neg ative POCT U BLD (test code = 3257) n/a Negative - Negati ve [facility] History and Physical Notes Date/Time Note Provider Source 2023-09-08 10:31:44 TRIAGE HISTORY & PHYSICAL IDENTIFYING DATA Marsha West is 23 year old, /White, 39w1d, female with ELIAN 09/14/2023, by Patient Reported. : 2000 Primary Care Physician: PATIENT DOES NOT HAVE A PCP CHIEF COMPLAINT Induction at 39 weeks HISTORY OF PRESENT ILLNESS Marsha West is a 23 year old female @ 39w1d +FM. No VB, LOF, or CTX. No pre-eclampsia sx or other complaints. PAST OBSTETRIC HISTORY OB History Para Term AB Living 1 SAB IAB Ectopic Multiple Live Births # Outcome Date GA Lbr Andrea/2nd Weight Sex Delivery Anes PTL Lv 1 Current PAST MEDICAL HISTORY Problem list: Patient Active Problem List Diagnosis Date Noted 39 weeks gestation of 09/08/2023 Positive GBS test 08/25/2023 Encounter for supervision of normal first in third trimester 03/01/2023 Operations: No past surgical history on file. No past medical history on file. CURRENT HEALTH STATUS Medications: Current Facility-Administered Medications Medication Dose Route Frequency Last Rate Last Admin carboprost (HEMABATE) injection 250 mcg 250 mcg Intramuscular Q2HPRN D5W-LR IV infusion 1,000 mL 1,000 mL IV Infusion TITRATE 125 mL/hr at 09/08/23 1108 1,000 mL at 09/08/23 1108 FENTanyl PF (SUBLIMAZE (PF)) injection 100 mcg 100 mcg Slow IV Push Q1HPRN 100 mcg at 09/08/23 1147 lactated ringers IV infusion 500 mL 500 mL IV Infusion ONCE Held at 09/08/23 1115 lactated ringers IV infusion 500 mL 500 mL IV Infusion PRN - SEE INSTRUCTIONS lactated ringers IV infusion 500 mL 500 mL IV Infusion PRN - SEE INSTRUCTIONS lidocaine 1% (PF) (XYLOCAINE) injection 0.3 mL 0.3 mL Infiltration PRN - SEE INSTRUCTIONS methylergonovine (METHERGINE) injection 0.2 mg 0.2 mg Intramuscular Q4HPRN misoprostol (CYTOTEC) quarter-tablet 25 mcg 25 mcg Vaginal Q4H ABX miSOPROStoL (CYTOTEC) tablet 200 mcg 200 mcg Rectal PRN ondansetron (ZOFRAN (PF)) injection 4 mg 4 mg Slow IV Push Q8HPRN oxytocin (PITOCIN) 30 units in NS 500 mL IV infusion 600 mL/hr IV Infusion PRN penicillin GK 3 million units in NS 50 mL IV infusion (CNR) 3 Million Units IV Piggyback Q4H ABX sodium citrate-citric acid (BICITRA) 500-334 mg/5 mL solution 30 mL 30 mL Oral PRE-PROCEDURE ONCE terbutaline (BRETHINE) injection 0.25 mg 0.25 mg Subcutaneous PRN tranexamic acid (CYKLOKAPRON) 1,000 mg in NaCl 0.9% (NS) 250 mL piggyback 1,000 mg IV Piggyback PRN Allergies and drug reactions: Patient has no known allergies. HOME MEDICATIONS Medications Prior to Admission Medication Sig Dispense Refill Last Dose PNV no.95/ferrous fum/folic ac ( ORAL) Take by mouth. Taking SOCIAL HISTORY Tobacco History: Social History Tobacco Use Smoking Status Never Passive exposure: Never Smokeless Tobacco Never Drug History: Social History Substance and Sexual Activity Drug Use Not Currently Types: Marijuana Comment: quit when found out was Alcohol History: Social History Substance and Sexual Activity Alcohol Use Not Currently Comment: quit when got FAMILY HISTORY Family History Problem Relation Age of Onset Ovarian Cancer Mother Diabetes Father REVIEW OF SYSTEMS General: negative Constitutional: negative Eyes: negative ENT/Mouth: negative Cardiovascular: negative Respiratory: negative Gastrointestinal:negative Genitourinary: negative Musculoskeletal: negative Skin/breast: negative Neurological: negative Psychiatric: negative Endocrine: negative Hemat/Lymph: negative Allergic/Immuno:none VITAL SIGNS BP: (128)/(75) Temp: [36.6 ?C (97.8 ?F)] Temp source: Oral (09/08 1050) Pulse: [117] Resp: [18] SpO2: [100 %] Height: [157.5 cm (5' 2")] Weight: [78 kg (172 lb)] BMI (calculated): [31.46] PHYSICAL EXAMINATIONS Gen: alert and oriented, well appearing, no distress CV: RRR, normal S1/S2, no m/r/g Resp: normal work of breathing, lungs CTAB Abd: gravid, soft, NTTP Ext: no calf tenderness or edema : SVE cl/th/high REVIEW OF LABORATORY, PATHOLOGY, AND RADIOLOGY DATA Lab results: Type & Screen HIV Hep B Syphilis Chlamydia ABO & RH Date Value Ref Range Status 09/08/2023 A Positive Final No results found for: "HIVMULTIPLEX" No components found for: "HBSHBSAG" No results found for: "SYPIGG" C. trachomatis Nucleic Acid Date Value Ref Range Status 08/18/2023 Negative Negative Final IAT Date Value Ref Range Status 09/08/2023 Negative Final Varicella Rubella Glucose Group B Strep CBC VZV IgG antibody Date Value Ref Range Status 03/02/2023 Positive Negative Final Rubella screen IgG Date Value Ref Range Status 03/02/2023 Positive Negative Final GLUC 1 HR Date Value Ref Range Status 06/14/2023 129 120 - 170 mg/dL Final No results found for: "CGBS" HGB Date Value Ref Range Status 09/08/2023 13.0 11.6 - 15.0 g/dL Final HCT Date Value Ref Range Status 09/08/2023 37.8 35.7 - 45.2 % Final PLT Date Value Ref Range Status 09/08/2023 213 166 - 358 10*3/?L Final Active Hospital Problems Diagnosis Date Noted 39 weeks gestation of 09/08/2023 Positive GBS test 08/25/2023 Resolved Hospital Problems No resolved problems to display. Present on Admission: 39 weeks gestation of Positive GBS test Placenta Accreta Screening Screening outcome: A positive screening outcome indicates a history of prior delivery or prior uterine surgery, AND the presence of either a placenta low lying/previa or ultrasound suspicion of PASD in the current . Negative screening. ASSESSMENT AND PLAN Marsha West is a 23 year old female @ 39w1d here for an elective induction. Induction - FB in placed. Received misoprostol 25 mcg orally for cervical ripening. Will hold vaginal misoprostol. - Cephalic presentation confirmed - GBS positive: PCN ordered - Andrés EFW less than [address] Garcia, please see OB Summary for more details Hali Garcia MD 09/08/2023 12:46 PM [facility] Procedure Notes Date/Time Note Provider Source 2023-09-08 21:10:17 Associated Order(s): Central Neuraxial Block Central Neuraxial Block Date/Time: 09/08/2023 8:48 PM Performed by: Radha Burger MD Authorized by: Radha Burger MD Patient Location: OB End Time: 09/08/2023 8:58 PM Reason for Block: OB request, Patient request and Labor analgesia Staff: Anesthesiologist: Radha Burger MD Performed by: anesthesiologist Preanesthetic Checklist: patient identified, IV checked, risks and benefits explained, monitors and equipment checked, timeout performed, ob surgical consent/approval, pre-op evaluation, surgical consent, site marked, anesthesia consent, OB/surgical consent verified, ob/surgical consent verified and ob/surgical consent approval Procedure: Type of Neuraxial: Epidural Epidural Description: 1st attempt Sterility Prep cap, drape, gloves, hand hygiene and mask Sedation Level no sedation Patient Position: sitting Prep: Betadine and patient draped Monitoring: heart rate, continuous pulse ox, heart rate / toco and NIBP Location: lumbar (1-5) Lumbar: L3-L4 Approach: midline Technique: FABRICE air and catheter Guidance with: landmark technique} Epidural/Spinal [place] and/or Catheter: Epidural/Spinal Kit: BBshabana Needle Type: Tuohy Needle Gauge: 17 G Needle Length: 3.5 in (8.89 cm) Needle Insertion Depth: 5 Catheter Type: multiport Catheter Size: 19 G Catheter at Skin Depth: 10 Number of Attempts: 1 Test Dose: lidocaine 1.5% with epinephrine 1-to-200,000 and negative Dose: 3 cc Catheter Securement Method: Tegaderm, surgical tape and clear occlusive dressing Assessment: Sensory Level: above T10 Block Outcome: successful block, no apparent complications, pain relieved, patient tolerated procedure well, patient satisfied, patient comfortable, positive pain relief, appropriate motor block, appropriate sensory block and pain improved Procedure Assessment: patient tolerated procedure well with no complications Notes: Smooth and atraumatic, one attempt, (+) Local, (+) STF, catheter threaded easily, negative aspiration, negative test dose. Secured with mastisol then tegaderm and tape. Reports relief. [facility] 2023-09-08 12:46:26 Procedure(s): INSERT CERVICAL DILATOR Pre-Procedure Diagnose(s): 39 weeks gestation of ; Positive GBS test Post-Procedure Diagnose(s): 39 weeks gestation of ; Positive GBS test Snow bulb inserted in a sterile manner and inflated with 60 cc of normal saline without complications. Patient tolerated the procedure well. Hali Garcia MD #[id number] 09/08/2023 12:46 PM [facility] Notes Date/Time Note Provider Source 2023-09-10 18:30:41 Problem: Bleeding, Risk of Goal: Absence of impaired coagulation signs and symptoms Outcome: Progressing as expected Goal: Absence of active bleeding Outcome: Progressing as expected Problem: Infection Risk Goal: Absence of infection Outcome: Progressing as expected Problem: Respiratory Function - Impaired Goal: Able to cough effectively Outcome: Progressing as expected Goal: Adequate oxygenation Outcome: Progressing as expected Goal: Adequate work of breathing Outcome: Progressing as expected Goal: Patent airway Outcome: Progressing as expected Problem: Breast-feeding - Ineffective Goal: Effective breast-feeding Outcome: Progressing as expected Problem: Coping - Ineffective, Individual Goal: Effective coping Outcome: Progressing as expected Goal: Knowledge of positive coping patterns Outcome: Progressing as expected Goal: Knowledge of depression symptoms Outcome: Progressing as expected [facility] 2023-09-09 19:53:53 Problem: Bleeding, Risk of Goal: Absence of impaired coagulation signs and symptoms Outcome: Progressing as expected Goal: Absence of active bleeding Outcome: Progressing as expected Problem: Infection Risk Goal: Absence of infection Outcome: Progressing as expected Problem: Respiratory Function - Impaired Goal: Able to cough effectively Outcome: Progressing as expected Goal: Adequate oxygenation Outcome: Progressing as expected Goal: Adequate work of breathing Outcome: Progressing as expected Goal: Patent airway Outcome: Progressing as expected Problem: Breast-feeding - Ineffective Goal: Effective breast-feeding Outcome: Progressing as expected Problem: Coping - Ineffective, Individual Goal: Effective coping Outcome: Progressing as expected Goal: Knowledge of positive coping patterns Outcome: Progressing as expected Goal: Knowledge of depression symptoms Outcome: Progressing as expected DER SET UP OPERATOR UNIVERSAL Blanca Vasquez RN [facility] 2023-09-09 18:49:57 Problem: Bleeding, Risk of Goal: Absence of impaired coagulation signs and symptoms Outcome: Progressing as expected Goal: Absence of active bleeding Outcome: Progressing as expected Problem: Infection Risk Goal: Absence of infection Outcome: Progressing as expected Problem: Respiratory Function - Impaired Goal: Able to cough effectively Outcome: Progressing as expected Goal: Adequate oxygenation Outcome: Progressing as expected Goal: Adequate work of breathing Outcome: Progressing as expected Goal: Patent airway Outcome: Progressing as expected Problem: Coping - Ineffective, Individual Goal: Effective coping Outcome: Progressing as expected Goal: Knowledge of positive coping patterns Outcome: Progressing as expected Goal: Knowledge of depression symptoms Outcome: Progressing as expected Problem: Breast-feeding - Ineffective Goal: Effective breast-feeding Outcome: Not progressing as expected Note: Baby needs work on latching. Pump at bedside and reinforced to pump Q3hr to establish milk supply, after attempting to breastfeed baby first. Problem: Intrapartum process (including labor pain) Goal: Absence of or reduction of complications of labor Outcome: Resolved Goal: Able to cope with pain Outcome: Resolved Goal: Adequate to move to next level of care Outcome: Resolved Goal: Reduction in pain sensation Outcome: Resolved DER SET UP OPERATOR UNIVERSAL Shira Major RN [facility] 2023-09-09 07:00:24 Patient: Marsha West Procedure Summary Date: 09/08/23 Room / Location: [address] LABOR AND DELIVERY OR LOCATION Anesthesia Start: 2047 Anesthesia Stop: 09/09/23608 Procedure: SECTION (Abdomen) Diagnosis: (Non-reassuring status) Surgeons: Hali Garcia MD Responsible Provider: Radha Burger MD Anesthesia Type: Not recorded ASA Status: 2 Anesthesia Type: No value filed. Last vitals BP 93/60 (09/09/23614) Temp 37.2 ?C (98.9 ?F) (09/09/23614) Pulse 104 (09/09/23614) Resp SpO2 99 % (09/09/23614) There were no known notable events for this encounter. Anesthesia Post Evaluation Patient location during evaluation: PACU Patient participation: complete - patient participated Level of consciousness: awake Pain score: 0 Pain management: adequate Airway patency: patent Cardiovascular status: acceptable Respiratory status: acceptable, room air, unassisted and spontaneous ventilation Hydration status: stable Comments: ANESTHESIA FACULTY EPIDURAL POST NOTE Date of service: 09/09/2023 Patient examined, patient awake s/p C SECTION with epidural BP 93/60 | Pulse 104 | Temp 37.2 ?C (98.9 ?F) (Axillary) | Resp 15 | Ht 1.575 m (5' 2") | Wt 78 kg (172 lb) | LMP 12/19/2022 | SpO2 99% | Unknown | BMI 31.46 kg/m? Block not fully resolved, as expected. Patient participated otherwise. Block resolving appropriately. Patient discharged from PACU according to criteria. Complications: No apparent complications Fall precautions given Radha Burger MD . [facility] AN-ANESTHESIOLOGY ANESTHESIOLOGIST [facility] 2023-09-09 05:43:31 Delivery Date: 09/09/2023 Delivery Time: 5:17 AM DELIVERY BY SECTION Date of Service: : 09/09/2023 at 5:17 AM Admitted for: induction at 39 wks, Primary Lower uterine tranverse section with no extension, no BTL, Pfannenstiel, Closed with suture, QBL see I/O's, No complications, Findings: None Delivery Summary [place] Sex: male Weight: 3550 g 1 Minute 5 Minute 10 Minute Totals: 8 9 Primary Indication: Marsha West is a 23 year old female G1 @ 39w2d admitted for induction at 39 weeks. Intrapartum course was complicated with persistent category 2 strip due to minimal variability and tachycardia and small variable decelerations remote from delivery. Cervix was 6 cm dilated. Patient also ruled in for suspected chorioamnionitis. The patient was taken to the operating room for a primary section due to: Nonreassuring Conditon - Decreased beat to beat variability at 39w2d weeks. Procedures: Primary Lower uterine tranverse section with no extension Specimens Removed: Placenta Surgeon: Hali Garcia MD Report: Prophylactic antibiotic, penicillin, gentamicin, clindamycin, and azithromycin was given to patient. After arrival to the operating room patient was placed in the supine position with left lateral tilt after dosing of epidural anesthesia. Laparotomy A pfannenstiel incision was made through the anterior abdominal wall with #10 scalpel. The incision was extended sharply with the #10 scalpel through the subcutaneous tissue to the level of fascia. The fascia was entered sharply with a #10 scalpel (Pfannenstiel) in the midline and extended bluntly. The rectus muscles were in the midline bluntly with digits. The peritoneum was then entered bluntly. The peritoneal incision was then extended superiorly and inferiorly under direct visualization with care being taken to avoid bladder and bowel. No adhesions were noted. The peritoneal incision was enlarged bluntly by lateral traction from the surgeon's and first grade teacher's hand. Delivery A bladder flap was developed by grasping with American forcep and enter with Metzenbaun scissor. Then sharp and blunt dissection with Metzenbaum scissor and fingers were performed. A low transverse hysterotomy was made then with #10 scalpel and extended laterally and cephalad with fingers in a low transverse fashion with Manu Oleary technique with care being taken to avoid injury to the fetus. The amniotic (membranes) were then entered , and the amniotic fluid was noted to be clear . The head was delivered manually without aid of vaginal hand. The head was flexed and delivered through the hysterotomy incision in a non-traumatic fashion with aid of fundal pressure applied by the family practice physician assistant surgeon . The body was delivered with traction on the head along with fundal pressure. After delivery of body-bulb suction was performed from oropharynx and nostril with removal of clear amniotic fluid. Fetus was delivered in cephalic presentation. With delivery the baby, no extension was noted.Delayed cord clamping was performed for 30-60 seconds. Placenta was delivered spontaneously with steady traction on cord and manual separation of placenta from uterine wall. Closure Uterine cavity was cleaned after placental delivery with lap sponge x 2. The hysterotomy was closed in one layer with stitches using 1-0 Monocryl with continuous locking stitches. Hemostasis was achieved as needed with electrocautery. The ovaries/tubes/uterine surface were evaluated. They were found to be normal. Rectus muscle was re-approximated with 2-0 Monocryl. Fascia was closed with running stitches using 0-Biosyn . Hemostasis was checked for and found to be adequate. The subcutaneous tissue was irrigated and hemostasis was achieved where needed with electrocautery. The skin was then closed with subcutaneous stitches using 3-0 Vicryl sutures. The incision was cleaned and covered with a compression bandage and the procedure considered to be complete at this time. Intraoperative Complications: None Uterotonics: 30 units of pitocin mixed in 500 cc of LR Disposition: The patient tolerated the procedure well. She was recovered in the Labor and Delivery Room with routine care in stable condition, with a contracted uterus and normal transvaginal bleeding. The was sent to Transition Nursery. The placenta was not sent to pathology. Hali Garcia MD 09/09/2023 12:27 PM [facility] 2023-09-08 21:11:33 Name/ MRN / Age / Gender: Marsha West, [id number] 23 year old female BMI: Estimated body mass index is 31.46 kg/m? as calculated from the following: Height as of this encounter: 1.575 m (5' 2"). Weight as of this encounter: 78 kg (172 lb). Allergies: Patient has no known allergies. Last Vitals: BP Readings from Last 1 Encounters: 09/08/23 137/74 Pulse Readings from Last 1 Encounters: 09/08/23 101 SpO2 Readings from Last 1 Encounters: 09/08/23 100% Date of Surgery: Surgeon: * Surgery not found * Procedure: CENTRAL NEURAXIAL BLOCK OR Location: [place] ANESTHESIA OUT OF OR - OR LOCATION Anesthesia Preop Eval (physical exam) Anesthesia Preop: [id number] PONV Risk Factors: female Anesthesia History Anesthesia History Negative Previous Anesthetics/Airways Cardiovascular Negative Cardiac ROS Pulmonary (+) Tobacco use Tobacco Quit Date: 9 mos ago (+) Cigarette use Neuro/Musculoskeletal (+) Obesity GI/Hepatic Negative GI/Hepatic ROS Hematology Negative Hematology ROS Comments: 09/08/23 11:00 WBC x10 3 : 9.65 RBC x10 6 : 4.06 HGB: 13.0 HCT: 37.8 PLT x10 3 : 213 Renal Negative Renal ROS Skin Negative Skin ROS (+) Current IV access and 18g Endo/Other Negative Endo/Other ROS Other (+) Tobacco use Tobacco Quit Date: 9 mos ago (+) Cigarette use (+) Drug use (Marijuana) 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 Hold on DOS. Phentermine: Alert [facility] anesthesiologist SGLT2 Inhibitors: "gliflozins" to be held for 3 days prior to elective surgeries GLP1 Agonosit: stop 7 days prior to surgery MAC Cases: Continue taking SLICK inhibitors and ARBs ASA Classification ASA: 2 Current Medications: No outpatient medications have been marked as taking for the 09/08/23 encounter (Hospital Encounter). Previous Surgeries: Past Surgical History: Procedure Laterality Date INSERT CERVICAL DILATOR 09/08/2023 Anesthesia Physical Exam General alert and oriented x 3 Neuro/Psych neurological Dental no notable dental hx Abdominal (+) gravid Airway Mallampati score:II TM distance:< 5 cm NECK: short Neck ROM: full Mouth opening:normal Extremity Normal extremity Pulmonary pulmonary exam normal and bilateral clear to auscultation Other Cardiovascular cardiovascular exam normalRhythm:regular Rate: normal Anesthesia Plan ASA Status: 2 Plan discussed during pre-op evaluation: General, Epidural, Spinal and CSE Anesthesia plan discussed with: patient or canvas products sales representative Post-Operative Analgesia: routine analgesia & antiemetics Recovery Plan: LDR Additional comments: Date Anesthesia Start: 09/08/2023 Labor Room: 2304/2304- Marsha West is a 23 year old female here at 39w1d weeks gestation for vaginal delivery. BP 137/74 | Pulse 101 | Temp 36.8 ?C (98.2 ?F) (Oral) | Resp 15 | Ht 1.575 m (5' 2") | Wt 78 kg (172 lb) | LMP 12/19/2022 | SpO2 100% | BMI 31.46 kg/m? Heart Rate: A) Baseline FHR (bpm): 145 I reviewed the preoperative history, labs, medications and pertinent studies and preformed a physical exam preoperatively. The anesthetic plan is epidural. I discussed this anesthetic plan with all of its components at length with the patient, including the risks, benefits, and alternatives. I answered all of their questions and consent, ID, and npo status were verified. The patient agrees with the plan and desires to proceed with the epidural. [facility] 2023-09-08 19:31:12 Problem: Intrapartum process (including labor pain) Goal: Absence of or reduction of complications of labor Outcome: Progressing as expected Goal: Able to cope with pain Outcome: Progressing as expected Goal: Adequate to move to next level of care Outcome: Progressing as expected Goal: Reduction in pain sensation Outcome: Progressing as expected [facility] 2023-09-08 19:26:44 Problem: Intrapartum process (including labor pain) Goal: Absence of or reduction of complications of labor Outcome: Progressing as expected Goal: Able to cope with pain Outcome: Progressing as expected Goal: Adequate to move to next level of care Outcome: Progressing as expected Goal: Reduction in pain sensation Outcome: Progressing as expected [facility] 2023-09-08 12:45:26 Name/ MRN / Age / Gender: Marsha West, [id number] 23 year old female BMI: Estimated body mass index is 31.46 kg/m? as calculated from the following: Height as of this encounter: 1.575 m (5' 2"). Weight as of this encounter: 78 kg (172 lb). Allergies: Patient has no known allergies. Last Vitals: BP Readings from Last 1 Encounters: 09/08/23 128/75 Pulse Readings from Last 1 Encounters: 09/08/23 117 SpO2 Readings from Last 1 Encounters: 09/08/23 100% Date of Surgery: Surgeon: * Surgery not found * Procedure: LABOR CONSULT OR Location: * No surgery found * Anesthesia Preop Eval (physical exam) Anesthesia Preop: [id number] PONV Risk Factors: female Anesthesia History Anesthesia History Negative Previous Anesthetics/Airways Cardiovascular Negative Cardiac ROS Pulmonary (+) Tobacco use Tobacco Quit Date: 9 mos ago (+) Cigarette use Neuro/Musculoskeletal (+) Obesity GI/Hepatic Negative GI/Hepatic ROS Hematology Negative Hematology ROS Comments: 09/08/23 11:00 WBC x10 3 : 9.65 RBC x10 6 : 4.06 HGB: 13.0 HCT: 37.8 PLT x10 3 : 213 Renal Negative Renal ROS Skin Negative Skin ROS (+) Current IV access and 18g Endo/Other Negative Endo/Other ROS Other (+) Tobacco use Tobacco Quit Date: 9 mos ago (+) Cigarette use (+) Drug use (Marijuana) 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 Hold on DOS. Phentermine: Alert [facility] anesthesiologist SGLT2 Inhibitors: "gliflozins" to be held for 3 days prior to elective surgeries GLP1 Agonosit: stop 7 days prior to surgery MAC Cases: Continue taking SLICK inhibitors and ARBs ASA Classification ASA: 2 Current Medications: No outpatient medications have been marked as taking for the 09/08/23 encounter (Hospital Encounter). Previous Surgeries: No past surgical history on file. Anesthesia Physical Exam General alert and oriented x 3 Neuro/Psych neurological Dental no notable dental hx Abdominal (+) gravid Airway Mallampati score:II TM distance:< 5 cm NECK: short Neck ROM: full Mouth opening:normal Extremity Normal extremity Pulmonary pulmonary exam normal and bilateral clear to auscultation Other Cardiovascular cardiovascular exam normalRhythm:regular Rate: normal Anesthesia Plan ASA Status: 2 Plan discussed during pre-op evaluation: General, Epidural, Spinal and CSE Anesthesia plan discussed with: patient or canvas products sales representative Post-Operative Analgesia: routine analgesia & antiemetics Recovery Plan: LDR Additional comments: DER SET UP OPERATOR [employer] NACR-NURSE CARD GAME OPERATOR,CERTIFIED REGISTERED NURSE CARD GAME OPERATOR [facility] 2023-09-02 11:15:00 Age: [age] year old GA: 38w2d -Doing well -Irregular contractions: Declined cervical exam. -Induction scheduled for 09/08/2023 at 39 weeks unless clinically indicated otherwise -Daily kick counts and labor precautions given -Follow-up in 4 to 6 weeks for visit DER SET UP OPERATOR [employer] 2023-08-25 13:00:00 Images from the original note were not included. Venipuncture collection performed by clean technique on the left anticubitus. Total of 1 attempts were made. Slight pressure and a bandage/dressing were applied to the site(s). The patient experienced no complications. The following specimens were processed according to instructions and sent to [facility] laboratories per lab order on 08/25/2023 : LT BLUE SST RED LAV 1 PPT DK GREEN (LiHep) DK GREEN (SodH) MANN DK BLUE (K2) DK BLUE (S) ACD Blood Culture NIPT/NTD DER SET UP OPERATOR [facility] 2023-05-03 15:45:00 Formatting of this n ote might be different from the original. Age: [age] year old GA: 20w6d -Doing well without concerns -Maternal serum AFP negative -Anatomy scan scheduled for 05/12/2023 -Follow-up in 4 weeks for visit [facility] 2023-04-19 09:15:00 Formatting of this n ote is different from the original. Images from the original note were not included. Venipuncture collection performed by clean technique on the left forearm(s). Total of 1 attempts were made. Slight pressure and a bandage/dressing were applied to the site(s). The patient experienced no complications. The following specimens were processed according to instructions and sent to [facility] laboratories per lab order on 04/19/2023 : LT BLUE 2 SST RED LAV PPT DK GREEN (LiHep) DK GREEN (SodH) MANN DK BLUE (K2) DK BLUE (S) ACD Blood Culture NIPT/NTD [facility] [place] 2023-04-05 16:15:00 Formatting of this n ote might be different from the original. Age: [age] year old GA: 16w6d -Doing well without concerns -New OB labs within normal limits -Panorama low risk male -Horizon negative -Maternal serum AFP ordered -Anatomy scan ordered -Follow-up in 4 weeks for visit T [facility] [place]
--- NOTE | 2024-10-20 10:37 | EDPHYS ---
Physician Documentation [facility] Name: Marsha West Age: 24 yrs Sex: Female : 2000 Arrival Date: 10/20/2024 Time: 10:13 Bed 13 Private MD: ED Physician Umesh Esposito HPI: 10/20 10:37 This 24 yrs old Female presents to ER via Unassigned with complaints of Rash. ec2 10:37 Patient arrives today for approximately 1 month of a rash. Patient reports that she had ec2 a rash in the upper trunk and abdomen for the past 1 month. Has tried Calamine lotion as well as Benadryl cream with minimal alleviation in symptoms. No issues with vomiting or diarrhea. No urinary complaints. No cough and cold symptoms. No fevers or chills, no nausea or vomiting. . 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 - Infectious Disease History:: Denies. - Social history:: Smoking status: Patient denies any tobacco usage or history of. ROS: 10:38 Constitutional: as per hpi ec2 Exam: 10:38 Constitutional: GEN: NAD Head: atraumatic Eyes: EOMI Ears: External ears are ec2 normal. CV: regular rate LUNGS: no respiratory distress ABD: non-distended SKIN: Nonspecific circular rashes throughout the bilateral upper extremities as well as trunk and abdomen. Some yellow crusting, some flaking associated with that as well. MSK: no evidence of trauma Vital Signs: 10:34 BP 129 / 86; Pulse 97; Resp 16; Temp 98.3; Pulse Ox 100% ; Weight 61.23 kg; Height 5 db ft. 2 in. ; 10:34 Body Mass Index 24.69 (61.23 kg, 157.48 cm) db MDM: 10:25 Medical Screening Exam initiated ec2 10:38 Data reviewed: vital signs, nurses notes. ED course: Patient patient arrives today for ec2 skin rash. Examination as above. Possible eczema, possible impetigo however distribution will be slightly abnormal. Will send the patient steroids and antibiotics and have patient follow-up with primary care. Return precautions given.. Administered Medications: No medications were administered Disposition Summary: 10/20/24 10:37 Discharge Ordered Notes: Location: Home ec2 Condition: Stable ec2 Diagnosis - Dermatitis, unspecified ec2 Followup: ec2 - With: Private Physician - When: - Reason: Re-evaluation by your physician Discharge Instructions: - Discharge Summary Sheet ec2 - Eczema ec2 Forms: - Medication Reconciliation Form ec2 - Antibiotic Education ec2 - Prescription Opioid Use ec2 - Patient Portal Instructions ec2 - Leadership Thank You Letter ec2 Prescriptions: - Cephalexin 500 mg Oral capsule - take 1 capsule ORAL route every 12 hours for 5 days; 10 capsule; Refills: 0, ec2 Product Selection Permitted - Prednisone 20 mg Oral Tablet - take 2 tablets ORAL route once daily for 5 days; 10 tablet; Refills: 0, Product ec2 Selection Permitted Signatures: Ina De Leon RN RN db Corral, Edwin, MD MD ec2 Corrections: (The following items were deleted from the chart) 10:46 10:45 PMHx: None; kerri manning
--- NOTE | 2024-10-20 10:52 | ER ---
Nurse's Notes [facility] Name: Marsha West Age: 24 yrs Sex: Female : 2000 Arrival Date: 10/20/2024 Time: 10:13 Bed 13 Private MD: Diagnosis: Dermatitis, unspecified Presentation: 10/20 10:34 Chief complaint: Patient states: RASH ALL OVER BODY RAISED AND ITCHY X 1 MONTH db SPREADING,. TOOK BENADRYL TODAY AND TOPICAL CREAMS. Coronavirus screen: Client denies travel out of the [place] in the last 14 days. At this time, the client does not indicate any symptoms associated with coronavirus-19. Ebola Screen: Patient negative for fever greater than or equal to 101.5 degrees Fahrenheit, and additional compatible Ebola Virus Disease symptoms Patient denies exposure to infectious person. Patient denies travel to an Ebola-affected area in the 21 days before illness onset. No symptoms or risks identified at this time. Initial Sepsis Screen: Does the patient meet any 2 criteria? No. Patient's initial sepsis screen is negative. Does the patient have a suspected source of infection? No. Patient's initial sepsis screen is negative. Risk Assessment: Do you want to hurt yourself or someone else? Patient reports no desire to harm self or others. Onset of symptoms was September 19, 2024. 10:34 Method Of Arrival: Ambulatory db 10:34 Acuity: KEN 4 db Triage Assessment: 10:45 General: Appears in no apparent distress. Behavior is calm, cooperative. Pain: Denies db pain. Neuro: Level of Consciousness is awake, alert, obeys commands, Oriented to person, place, time, situation. Respiratory: Airway is patent Respiratory effort is even, unlabored, Respiratory pattern is regular, symmetrical. Derm: Rash noted that is red, raised. 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 - Infectious Disease History:: Denies. - Social history:: Smoking status: Patient denies any tobacco usage or history of. Screenin:47 [facility] ED Fall Risk Assessment (Adult) History of falling in the last 3 months, db including since admission No falls in past 3 months (0 pts) Confusion or Disorientation No (0 pts) Intoxicated or Sedated No (0 pts) Impaired Gait No (0 pts) Mobility Assist Device Used No (0 pt) Altered Elimination No (0 pt) Score/Fall Risk Level 0 - 2 = Low Risk Oriented to surroundings, Maintained a safe environment. Abuse screen: Denies threats or abuse. Denies injuries from another. Nutritional screening: No deficits noted. Tuberculosis screening: No symptoms or risk factors identified. Assessment: 10:47 Reassessment: SEE TRIAGE FOR INITIAL ASSESSMENT. db 10:51 Reassessment: Patient appears in no apparent distress at this time. Patient and/or db family updated on plan of care and expected duration. Pain level reassessed. Patient is alert, oriented x 3, equal unlabored respirations, skin warm/dry/pink. Vital Signs: 10:34 BP 129 / 86; Pulse 97; Resp 16; Temp 98.3; Pulse Ox 100% ; Weight 61.23 kg; Height 5 db ft. 2 in. ; 10:34 Body Mass Index 24.69 (61.23 kg, 157.48 cm) db ED Course: 10:16 Patient arrived in ED. al6 10:17 Umesh Esposito MD is Attending Physician. ec2 10:44 Ina De Leon RN is Primary Nurse. db 10:45 Triage completed. db 10:45 Arm band placed on Patient placed in an exam room. db 10:47 Bed in low position. Call light in reach. Side rails up X 1. Provided Education on: db FOLLOWUP. 10:51 No provider procedures requiring assistance completed. Patient did not have IV access db during this emergency room visit. Administered Medications: No medications were administered Medication: 10:47 VIS not applicable for this client. db Outcome: 10:37 Discharge ordered by . ec2 10:51 Discharged to home ambulatory, db 10:51 Condition: stable 10:51 Discharge instructions given to patient, Instructed on discharge instructions, follow up and referral plans. Prescriptions given X 2, 10:52 Patient left the ED. db Signatures: Ina De Leon RN RN db Corral, Edwin, MD MD ec2 Nika James al6 Corrections: (The following items were deleted from the chart) 10:46 10:45 PMHx: None; db db
[2024-10-20 10:57] VITALS: BP 129/86; TEMP 98.3; O2SAT 100
== END 2024-10-20 10:52 | disposition home or self-care (01) ==
LOC: ER 10:13
DX: L30.9 Dermatitis, unspecified (principal)
CPT/HCPCS: 99283